=== PATIENT | male | born 1965 | race Caucasian/White ===

== ENCOUNTER 2016-05-29 20:01 | Inpatient (IN) | payer OTHER ==
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
[2016-05-30 01:39] VITALS: BMI 21.5
[2016-05-30] MEDS ORDERED: ACETAMINOPHEN 325 MG TABLET (FP) PO PRN (01:58)
[2016-05-30] MEDS ORDERED: guaiFENesin/D-METHORPHAN HB 10 ML UNIT-DOSE CUPS PO PRN (01:58)
[2016-05-30] MEDS ORDERED: chlordiazePOXIDE HCL 25 MG CAPSULE PO PRN (01:58)
[2016-05-30] MEDS ORDERED: chlordiazePOXIDE HCL 25 MG CAPSULE PO ONE (01:58)
[2016-05-30] MEDS ORDERED: NICOTINE POLACRILEX 2 MG GUM BUC PRN (01:58)
[2016-05-30] MEDS ORDERED: MAG HYDROX/AL HYDROX/SIMETH 30 ML UNIT-DOSE CUP PO PRN (01:58)
[2016-05-30] MEDS ORDERED: MAGNESIUM CITRATE 300 ML BOTTLE PO PRN (01:58)
[2016-05-30] MEDS ORDERED: P-EPHED 60MG/TRIPROLIDI 2.5MG TABLET PO PRN (01:58)
[2016-05-30] MEDS ORDERED: MENTHOL/PHENOL 1 EACH UD MM PRN (01:58)
[2016-05-30] MEDS ORDERED: IBUPROFEN 400 MG TABLET (FP) PO PRN (01:58)
[2016-05-30] MEDS ORDERED: MAGNESIUM HYDROX 2400MG/30ML ORAL SUSPENSION 30 ML CUP PO PRN (01:58)
[2016-05-30] MEDS ORDERED: LOPERAMIDE HCL 2 MG CAPSULE PO PRN (01:58)
[2016-05-30] MEDS ORDERED: hydrOXYzine PAMOATE 50 MG CAPSULE (FP) PO PRN (01:58)
[2016-05-30] MEDS ORDERED: diphenhydrAMINE HCL 50 MG CAPSULE PO PRN (01:58)
[2016-05-30] MEDS: chlordiazePOXIDE HCL 25 MG CAPSULE PO SCH ×4 (06:14→22:38)
[2016-05-30 09:50] LABS: URINE APPEARANCE CLEAR; URINE BILIRUBIN NEGATIVE (NEGATIVE); URINE BLOOD NEGATIVE (NEGATIVE); URINE COLOR STRAW; URINE GLUCOSE (UA) NEGATIVE (NEGATIVE); URINE KETONE NEGATIVE (NEGATIVE); URINE LEUK ESTERASE NEGATIVE (NEGATIVE); URINE NITRITE NEGATIVE (NEGATIVE); URINE PROTEIN NEGATIVE (NEGATIVE); URINE UROBILINOGEN NEGATIVE E.U./dl (0.2-1.0)
--- NOTE | 2016-05-30 10:53 | PN ---
S CIWA - CIWA Score Nausea/Vomitin-No Nausea/No Vomiting Muscle Tremors: 4-Moderate,w/Arms Extend Anxiety: 3 Agitation: 4-Moderately Restless Paroxysmal Sweats: 3 Orientation: 0-Oriented Tacttile Disturbances: 0-None Auditory Disturbances: 0-None Visual Disturbances: 0-None Headache: 1-Very Mild CIWA-Ar Total Score: 15 BHS Progress Note (SOAP) Subjective: sleepy sweats chills i need to sleep Objective: 05/30/16 10:51 Vital Signs Temperature 97.5 F L 05/30/16 09:40 Pulse Rate 77 05/30/16 09:40 Respiratory Rate 16 05/30/16 09:40 Blood Pressure 127/61 05/30/16 09:40 O2 Sat by Pulse Oximetry (%) Laboratory Tests 05/30/16 07:00 Urine Color Straw Urine Appearance Clear Urine pH 6.0 Ur Specific [place] 1.005 Urine Protein Negative Urine Glucose (UA) Negative Urine Ketones Negative Urine Blood Negative Urine Nitrite Negative Urine Bilirubin Negative Urine Urobilinogen Negative Ur Leukocyte Esterase Negative labs pending awake/alert ambulating no acute distress Assessment: 05/30/16 10:53 withdrawal sx Plan: continue detox increase fluids
[2016-05-30] MEDS: NICOTINE 21 MG/24 HOURS TOPICAL PATCH TD SCH (12:31)
[2016-05-30] MEDS: PRENATAL VITAMINS W/ FOLIC ACID TABLET (FP) PO SCH (12:31)
--- NOTE | 2016-05-30 15:49 | CONSULT ---
[facility] Psychiatric Consult - Data Date of interview: 05/30/16 Admission source: [facility] Identifying data: First admission to [facility] for this 50 y/o male seeking detox treatment for alcohol dependence.Patient is approached at bedside for a psychiatric evaluation.Found sedated.Unable to provide personal information.Mr Bolden answers to his name,moves in bed.Speaks a few words and falls back to sleep.Psychiatric evaluation is deferred.Nursing staff made aware. Substance Abuse History: - Smoking Cessation. Smoking history: Current every day smoker. Have you smoked in the past 12 months: Yes. Aproximately how many cigarettes per day: 30. Hx Chewing Tobacco Use: Yes. Initiated information on smoking cessation: Yes. 'Breaking Loose' booklet given: 05/30/16. - Substance & Tx. History. Hx Alcohol Use: Yes. Hx Substance Use: No. Substance Use Type : Alcohol. Hx Substance Use Treatment: Yes (DETOX AND REHAB ). - Substances Abused. Alcohol. Route: Oral. Frequency: Daily. Amount used: 1 CASE OF BEER; 1L OF LIQUOR. Age of first use: 15. Date of Last Use: 05/29/16. Taken from [facility] report.Patient not able to provide information. Medical History: Reviewed via [facility] admission report.Normal vitals. Psychiatric History: No information. Physical/Sexual Abuse/Trauma History: No information. Additional Comment: Urine Drug Screen Results: BZO-Benzodiazepines.Noted. Suggest that librium be held.Monitor vitals.Fall precautions.
[2016-05-30] MEDS: THIAMINE HCL 100 MG TABLET (FP) PO SCH (22:38)
--- NOTE | 2016-05-30 23:34 | EKG ---
Test Reason : Blood Pressure : / mmHG Vent. Rate : 088 BPM Atrial Rate : 088 BPM P-R Int : 136 ms QRS Dur : 088 ms QT Int : 372 ms P-R-T Axes : 056 038 073 degrees QTc Int : 450 ms NORMAL SINUS RHYTHM NONSPECIFIC ST ABNORMALITY ABNORMAL ECG NO PREVIOUS ECGS AVAILABLE Confirmed by CALLI DOMINGUEZ, RAJAT ([id number]) on 05/30/2016 11:34:01 PM Referred By: Ignacio Browning Confirmed By:RAJAT MCCURDY MD
[2016-05-31] MEDS: chlordiazePOXIDE HCL 25 MG CAPSULE PO SCH ×4 (05:19→22:18)
[2016-05-31 10:12] LABS: MCH 25.5 pg (25.7-33.7); MCHC 31.7 g/dl (32.0-35.9); MEAN CELL VOLUME 80.6 fl (80-96); MEAN PLT VOLUME 8.9 fl (7.5-11.1); PLATELET COUNT 238 K/MM3 (134-434); RDW 19.4 % (11.9-15.9); WHITE BLOOD COUNT 5.6 K/mm3 (4.0-10.0)
[2016-05-31 10:18] LABS: ALBUMIN 3.1 g/dl (3.4-5.0); ALK PHOS 71 U/L (45-117); ANION GAP 9 (8-16); BILIRUBIN,TOTAL 0.3 mg/dL (0.2-1.0); CALCIUM 8.6 mg/dL (8.5-10.1); CO2 27 mmol/L (21-32); CREATININE 0.5 mg/dL (0.7-1.3); GLUCOSE,RANDOM 93 mg/dL (74-106); SGOT/AST 23 U/L (15-37); SGPT/ALT 19 U/L (12-78); TOT PROT 7.3 g/dl (6.4-8.2)
[2016-05-31] MEDS: NICOTINE 21 MG/24 HOURS TOPICAL PATCH TD SCH (10:32)
[2016-05-31] MEDS: PRENATAL VITAMINS W/ FOLIC ACID TABLET (FP) PO SCH (10:33)
--- NOTE | 2016-05-31 10:36 | PN ---
S CIWA - CIWA Score Nausea/Vomitin Muscle Tremors: 3 Anxiety: 3 Agitation: 2 Paroxysmal Sweats: 3 Orientation: 0-Oriented Tacttile Disturbances: 2-Mild Itch/Numbness/Burn Auditory Disturbances: 0-None Visual Disturbances: 0-None Headache: 0-None Present CIWA-Ar Total Score: 15 BHS Progress Note (SOAP) Subjective: interrupted sleep, sweats, shakes ,lbp, Objective: 05/31/16 10:34 Vital Signs Temperature 96.1 F L 05/31/16 10:05 Pulse Rate 89 05/31/16 10:05 Respiratory Rate 20 05/31/16 10:05 Blood Pressure 114/69 05/31/16 10:05 O2 Sat by Pulse Oximetry (%) Laboratory Tests 05/30/16 05/31/16 05/31/16 07:00 07:00 07:00 WBC 5.6 RBC 3.97 L Hgb 10.1 L Hct 32.0 L MCV 80.6 MCHC 31.7 L RDW 19.4 H Plt Count 238 MPV 8.9 Sodium 140 Potassium 3.8 Chloride 104 Carbon Dioxide 27 Anion Gap 9 BUN 8 Creatinine 0.5 L Creat Clearance w eGFR > 60 Random Glucose 93 Calcium 8.6 Total Bilirubin 0.3 AST 23 ALT 19 Alkaline Phosphatase 71 Total Protein 7.3 Albumin 3.1 L Urine Color Straw Urine Appearance Clear Urine pH 6.0 Ur Specific [place] 1.005 Urine Protein Negative Urine Glucose (UA) Negative Urine Ketones Negative Urine Blood Negative Urine Nitrite Negative Urine Bilirubin Negative Urine Urobilinogen Negative Ur Leukocyte Esterase Negative pt aox3 lying in bed aka on rt has wheelchair +tremor Assessment: 05/31/16 10:35 withdrawl sx's aka Plan: cont. detox increase fluids motrin prn librium prn
[2016-05-31] MEDS: THIAMINE HCL 100 MG TABLET (FP) PO SCH (22:18)
[2016-06-01] MEDS: chlordiazePOXIDE 5 MG CAPSULE PO SCH ×2 (05:59→10:35)
[2016-06-01 06:35] VITALS: TEMP 98.1
[2016-06-01 09:39] VITALS: BP 134/60; PULSE 73
[2016-06-01] MEDS: PRENATAL VITAMINS W/ FOLIC ACID TABLET (FP) PO SCH (10:35)
[2016-06-01] MEDS: NICOTINE 21 MG/24 HOURS TOPICAL PATCH TD SCH (10:40)
--- NOTE | 2016-06-01 12:24 | PN ---
S Progress Note (SOAP) Subjective: Sweating, Interrupted Sleep, Diarrhea, Tremors, Back Ache. Objective: Pt. A & O X 2 (Disoriented about Location). 06/01/16 12:21 Vital Signs Temperature 98.1 F 06/01/16 09:38 Pulse Rate 73 06/01/16 09:38 Respiratory Rate 16 06/01/16 09:38 Blood Pressure 134/60 06/01/16 09:38 O2 Sat by Pulse Oximetry (%) Laboratory Last Values WBC 5.6 K/mm3 (4.0-10.0) 05/31/16 07:00 RBC 3.97 M/mm3 (4.00-5.60) L 05/31/16 07:00 Hgb 10.1 GM/dL (11.7-16.9) L 05/31/16 07:00 Hct 32.0 % (35.4-49) L 05/31/16 07:00 MCV 80.6 fl (80-96) 05/31/16 07:00 MCHC 31.7 g/dl (32.0-35.9) L 05/31/16 07:00 RDW 19.4 % (11.9-15.9) H 05/31/16 07:00 Plt Count 238 K/MM3 (134-434) 05/31/16 07:00 MPV 8.9 fl (7.5-11.1) 05/31/16 07:00 Sodium 140 mmol/L (136-145) 05/31/16 07:00 Potassium 3.8 mmol/L (3.5-5.1) 05/31/16 07:00 Chloride 104 mmol/L (98-107) 05/31/16 07:00 Carbon Dioxide 27 mmol/L (21-32) 05/31/16 07:00 Anion Gap 9 (8-16) 05/31/16 07:00 BUN 8 mg/dL (7-18) 05/31/16 07:00 Creatinine 0.5 mg/dL (0.7-1.3) L 05/31/16 07:00 Creat Clearance w eGFR > 60 (>60) 05/31/16 07:00 Random Glucose 93 mg/dL (74-106) 05/31/16 07:00 Calcium 8.6 mg/dL (8.5-10.1) 05/31/16 07:00 Total Bilirubin 0.3 mg/dL (0.2-1.0) 05/31/16 07:00 AST 23 U/L (15-37) 05/31/16 07:00 ALT 19 U/L (12-78) 05/31/16 07:00 Alkaline Phosphatase 71 U/L (45-117) 05/31/16 07:00 Total Protein 7.3 g/dl (6.4-8.2) 05/31/16 07:00 Albumin 3.1 g/dl (3.4-5.0) L 05/31/16 07:00 Urine Color Straw 05/30/16 07:00 Urine Appearance Clear 05/30/16 07:00 Urine pH 6.0 (5.0-8.0) 05/30/16 07:00 Ur Specific [place] 1.005 (1.001-1.035) 05/30/16 07:00 Urine Protein Negative (NEGATIVE) 05/30/16 07:00 Urine Glucose (UA) Negative (NEGATIVE) 05/30/16 07:00 Urine Ketones Negative (NEGATIVE) 05/30/16 07:00 Urine Blood Negative (NEGATIVE) 05/30/16 07:00 Urine Nitrite Negative (NEGATIVE) 05/30/16 07:00 Urine Bilirubin Negative (NEGATIVE) 05/30/16 07:00 Urine Urobilinogen Negative E.U./dl (0.2-1.0) 05/30/16 07:00 Ur Leukocyte Esterase Negative (NEGATIVE) 05/30/16 07:00 RPR Titer Nonreactive (NONREACTIVE) 05/31/16 07:00 LAB NOTED. Assessment: 06/01/16 12:22 WITHDRAWAL SYMPTOMS. Plan: CONTINUE DETOX. ADVISED PT. TO FOLLOW-UP WITH MOTOR POOL DRIVER / REHAB MEDICAL PROVIDER AFTER DISCHARGE FROM DETOX FOR GENERAL MEDICAL ASSESSMENT AND FOR ABNORMAL LAB VALUES.
--- NOTE | 2016-06-01 13:51 | DS ---
[facility] Detox Discharge Summary Admission Date: 05/30/16 Discharge Date: 06/01/16 (Pt. going to [address] [place] [address].) - History Present History: Alcohol Dependence Additional Comments: Pt. advised to follow-up with Rehab Medical Provider for General medical assessment. - Physical Exam Results Vital Signs: Vital Signs Temperature 98.1 F 06/01/16 09:38 Pulse Rate 73 06/01/16 09:38 Respiratory Rate 16 06/01/16 09:38 Blood Pressure 134/60 06/01/16 09:38 O2 Sat by Pulse Oximetry (%) Pertinent Admission Physical Exam Findings: Laboratory Last Values WBC 5.6 K/mm3 (4.0-10.0) 05/31/16 07:00 RBC 3.97 M/mm3 (4.00-5.60) L 05/31/16 07:00 Hgb 10.1 GM/dL (11.7-16.9) L 05/31/16 07:00 Hct 32.0 % (35.4-49) L 05/31/16 07:00 MCV 80.6 fl (80-96) 05/31/16 07:00 MCHC 31.7 g/dl (32.0-35.9) L 05/31/16 07:00 RDW 19.4 % (11.9-15.9) H 05/31/16 07:00 Plt Count 238 K/MM3 (134-434) 05/31/16 07:00 MPV 8.9 fl (7.5-11.1) 05/31/16 07:00 Sodium 140 mmol/L (136-145) 05/31/16 07:00 Potassium 3.8 mmol/L (3.5-5.1) 05/31/16 07:00 Chloride 104 mmol/L (98-107) 05/31/16 07:00 Carbon Dioxide 27 mmol/L (21-32) 05/31/16 07:00 Anion Gap 9 (8-16) 05/31/16 07:00 BUN 8 mg/dL (7-18) 05/31/16 07:00 Creatinine 0.5 mg/dL (0.7-1.3) L 05/31/16 07:00 Creat Clearance w eGFR > 60 (>60) 05/31/16 07:00 Random Glucose 93 mg/dL (74-106) 05/31/16 07:00 Calcium 8.6 mg/dL (8.5-10.1) 05/31/16 07:00 Total Bilirubin 0.3 mg/dL (0.2-1.0) 05/31/16 07:00 AST 23 U/L (15-37) 05/31/16 07:00 ALT 19 U/L (12-78) 05/31/16 07:00 Alkaline Phosphatase 71 U/L (45-117) 05/31/16 07:00 Total Protein 7.3 g/dl (6.4-8.2) 05/31/16 07:00 Albumin 3.1 g/dl (3.4-5.0) L 05/31/16 07:00 Urine Color Straw 05/30/16 07:00 Urine Appearance Clear 05/30/16 07:00 Urine pH 6.0 (5.0-8.0) 05/30/16 07:00 Ur Specific [place] 1.005 (1.001-1.035) 05/30/16 07:00 Urine Protein Negative (NEGATIVE) 05/30/16 07:00 Urine Glucose (UA) Negative (NEGATIVE) 05/30/16 07:00 Urine Ketones Negative (NEGATIVE) 05/30/16 07:00 Urine Blood Negative (NEGATIVE) 05/30/16 07:00 Urine Nitrite Negative (NEGATIVE) 05/30/16 07:00 Urine Bilirubin Negative (NEGATIVE) 05/30/16 07:00 Urine Urobilinogen Negative E.U./dl (0.2-1.0) 05/30/16 07:00 Ur Leukocyte Esterase Negative (NEGATIVE) 05/30/16 07:00 RPR Titer Nonreactive (NONREACTIVE) 05/31/16 07:00 LABS NOTED. - Treatment Hospital Course: Detox Protocol Followed, Detoxed Safely, Responded well, Discharged Condition Good, Rehab Referral Accepted Patient has Accepted a Rehab Referral to: Yes. - Medication Discharge Medications: Ambulatory Orders NK [No Known Home Medication] 05/30/16 - Diagnosis (1) H/O above knee amputation Current Visit: Yes Status: Chronic Qualifiers: Laterality: right Qualified Code(s): Z89.611 - Acquired absence of right leg above knee (2) Alcohol dependence with uncomplicated withdrawal Current Visit: Yes Status: Acute (3) History of CVA (cerebrovascular accident) Current Visit: Yes Status: Chronic (4) History of seizure Current Visit: Yes Status: Chronic - AMA Did Patient Leave Against Medical Advice: No (Pt. DC'd from Detox early for Rehab. Pt. denies current Withdrawal symptoms)
[2016-06-02] MEDS ORDERED: chlordiazePOXIDE HCL 10 MG CAPSULE PO SCH (05:00)
== END 2016-06-01 02:45 | disposition other institution (70) | DRG 775 ==
LOC: YASAS 20:01 → Y6N 05-30 01:26
PROVIDERS: ADMIT Internal Medicine Addiction Medicine; ATTEND Internal Medicine Addiction Medicine
PROC: HZ2ZZZZ Detoxification Services for Substance Abuse Treatment (ICD-10-PCS; principal; 2016-06-01)
DX: F10.230 Alcohol dependence with withdrawal, uncomplicated (principal); Z86.73 Personal history of transient ischemic attack (TIA), and cerebral infarction without residual deficits; Z86.69 Personal history of other diseases of the nervous system and sense organs; Z89.611 Acquired absence of right leg above knee; Z59.0 Homelessness
CPT/HCPCS: 36415; 80053; 81003; 85027; 86593; 93005; 93010

== ENCOUNTER 2016-06-01 15:12 | Inpatient (IN) | payer OTHER ==
--- NOTE | 2016-06-01 16:21 | HP ---
CARIDAD DOMINGUEZ Rehab Assess/Revision - Admission History Admitted to Rehab from: [facility] [place] Date of Admission to Rehab: 06/01/16 - Findings Detox History & Physical reviewed: Yes Concur with findings: Yes Comments/Additional Findings: transferred from detox to rehab admission as per protocol
[2016-06-01] MEDS ORDERED: MAGNESIUM CITRATE 300 ML BOTTLE PO PRN ×2 (16:22)
[2016-06-01] MEDS ORDERED: diphenhydrAMINE HCL 50 MG CAPSULE PO PRN (16:22)
[2016-06-01] MEDS ORDERED: MAGNESIUM HYDROX 2400MG/30ML ORAL SUSPENSION 30 ML CUP PO PRN ×2 (16:22)
[2016-06-01] MEDS ORDERED: MENTHOL/PHENOL 1 EACH UD MM PRN ×2 (16:22)
[2016-06-01] MEDS ORDERED: NICOTINE 14 MG/24 HOURS TOPICAL PATCH TD PRN (16:22)
[2016-06-01] MEDS ORDERED: hydrOXYzine PAMOATE 50 MG CAPSULE (FP) PO PRN ×2 (16:22)
[2016-06-01] MEDS ORDERED: NICOTINE POLACRILEX 2 MG GUM BUC PRN ×2 (16:22)
[2016-06-01] MEDS ORDERED: LOPERAMIDE HCL 2 MG CAPSULE PO PRN ×2 (16:22)
[2016-06-01] MEDS ORDERED: IBUPROFEN 400 MG TABLET (FP) PO PRN ×2 (16:22)
[2016-06-01] MEDS ORDERED: MAG HYDROX/AL HYDROX/SIMETH 30 ML UNIT-DOSE CUP PO PRN ×2 (16:22)
[2016-06-01] MEDS ORDERED: P-EPHED 60MG/TRIPROLIDI 2.5MG TABLET PO PRN ×2 (16:22)
[2016-06-01] MEDS ORDERED: guaiFENesin/D-METHORPHAN HB 10 ML UNIT-DOSE CUPS PO PRN ×2 (16:22)
[2016-06-01] MEDS ORDERED: ACETAMINOPHEN 325 MG TABLET (FP) PO PRN ×2 (16:22)
[2016-06-01] MEDS ORDERED: NICOTINE POLACRILEX 4 MG GUM BUC PRN (16:44)
[2016-06-01] MEDS: diphenhydrAMINE HCL 50 MG CAPSULE PO PRN ×2 (21:40→22:40)
[2016-06-01] MEDS: THIAMINE HCL 100 MG TABLET (FP) PO SCH (21:40)
[2016-06-01] MEDS ORDERED: THIAMINE HCL 100 MG TABLET (FP) PO SCH (22:00)
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
[2016-06-02] MEDS ORDERED: PRENATAL VITAMINS W/ FOLIC ACID TABLET (FP) PO SCH (10:00)
[2016-06-02] MEDS: PRENATAL VITAMINS W/ FOLIC ACID TABLET (FP) PO SCH (10:23)
[2016-06-02] MEDS: THIAMINE HCL 100 MG TABLET (FP) PO SCH (21:14)
[2016-06-02] MEDS: traZODone HCL 100 MG TABLET (FP) PO SCH (21:14)
[2016-06-02] MEDS: diphenhydrAMINE HCL 50 MG CAPSULE PO PRN (21:15)
[2016-06-03] MEDS: PRENATAL VITAMINS W/ FOLIC ACID TABLET (FP) PO SCH (10:17)
[2016-06-03] MEDS: THIAMINE HCL 100 MG TABLET (FP) PO SCH (21:22)
[2016-06-03] MEDS: diphenhydrAMINE HCL 50 MG CAPSULE PO PRN (21:22)
[2016-06-03] MEDS: traZODone HCL 100 MG TABLET (FP) PO SCH (21:22)
[2016-06-04 06:37] VITALS: BP 100/62; PULSE 79; TEMP 98.2
[2016-06-04] MEDS: PRENATAL VITAMINS W/ FOLIC ACID TABLET (FP) PO SCH (09:40)
== END 2016-06-04 10:45 | disposition left against medical advice (07) | DRG 770 ==
LOC: YASAS 15:12 → Y3W 15:13
PROVIDERS: ADMIT Psychiatry & Neurology Psychiatry; ATTEND Psychiatry & Neurology Psychiatry
PROC: HZ42ZZZ Group Counseling for Substance Abuse Treatment, Cognitive-Behavioral (ICD-10-PCS; principal; 2016-06-04)
DX: F10.230 Alcohol dependence with withdrawal, uncomplicated (principal); F17.210 Nicotine dependence, cigarettes, uncomplicated; F10.282 Alcohol dependence with alcohol-induced sleep disorder; B18.2 Chronic viral hepatitis C; Z86.73 Personal history of transient ischemic attack (TIA), and cerebral infarction without residual deficits; Z86.69 Personal history of other diseases of the nervous system and sense organs; Z89.611 Acquired absence of right leg above knee; Z59.0 Homelessness